=== PATIENT | female | born 1945 | race Caucasian/White ===

== ENCOUNTER → 2019-07-28 | Emergency (ER) | payer MEDICARE ==
[~2019-07-28] VITALS: Ht 170.2 cm; Wt 68.0 kg
--- NOTE | 2019-07-28 18:49 | NUR ---
PT BIBPA FROM [facility] C/O UNWITNESSED GLF, PT DENIES PAIN, PT IS AAOX3, NOT IN RESPIRATORY DISTRESS, HOOKED TO MONITOR, KEPT RESTED AND COMFORTABLE, WILL CONTINUE TO MONITOR.
--- NOTE | 2019-07-28 18:52 | NUR ---
AT BEDSIDE FOR EVAL.
--- NOTE | 2019-07-28 19:11 | NUR ---
REPORT GIVEN TO IDANNE ARAUZ FOR [facility].
--- NOTE | 2019-07-28 19:20 | NUR ---
BACK FROM CT SCAN
--- NOTE | 2019-07-28 19:25 | NUR ---
RECEIVED PT IN BED , AWAKE AND RESPONSIVE. CONFUSED. W/ REPORT OF GLF AT THE FACILITY FRON DAY SHIFT, HOWEVER PT DENIED ANY PAIN OR DISCOMFORT AT THIS TIME. RMAIEND ON CONTINUOUS MONITORING . VSS.. WILL CONT TO MONITOR FOR SAFETY AND FALL RISK.
--- NOTE | 2019-07-28 19:55 | NUR ---
Patient is resting comfortably in bed. VSS
--- NOTE | 2019-07-28 20:10 | NUR ---
RONI RIVERA [id number] TRIP#[id number]
--- NOTE | 2019-07-28 20:28 | NUR ---
ATEMPTED TO CALL [facility] [place] [facility] TO GIVE REPORT W/ NO RESPONSE
[2019-07-28 21:20] VITALS: BP 129/62
--- NOTE | 2019-07-28 21:22 | NUR ---
report given to grain trimmer from [facility]
--- NOTE | 2019-07-28 21:34 | NUR ---
Hayley jang in ED - 07/28/19 at 2209 by ASHOK Patient discharged to home in stable condition. Written and verbal after care instructions given. Patient verbalizes understanding of instruction.
--- NOTE | 2019-07-28 21:34 | NUR ---
pt unable to comprehend the written and verbal d/c instructions and unable to sign. pt was pickd up by [facility] and was transferred back to the facility in stable condition. all belongingz picked up by the shot dropper
== END | disposition home or self-care (01) ==
LOC: ER 18:44
DX: S09.8XXA Other specified injuries of head, initial encounter (principal); F03.90 Unspecified dementia, unspecified severity, without behavioral disturbance, psychotic disturbance, mood disturbance, and anxiety; I10 Essential (primary) hypertension; F41.9 Anxiety disorder, unspecified; W18.39XA Other fall on same level, initial encounter; Y93.89 Activity, other specified; Y92.89 Other specified places as the place of occurrence of the external cause; Y99.8 Other external cause status
CPT/HCPCS: 70450-TC; 72125-TC